=== PATIENT | female | born 1985 | race Caucasian/White ===

== ENCOUNTER 2020-05-09 12:09 | Emergency (ER) | payer BC, OTHER ==
--- NOTE | 2020-05-09 12:21 | EDM.PDOC ---
ED HPI GENERAL MEDICAL PROBLEM - General Chief Complaint: Back Pain or Injury Stated Complaint: POSSIBLE HERNIATED DISC Time Seen by Provider: 05/09/20 12:12 Source of Information: Reports: Patient History Limitations: Reports: No Limitations - History of Present Illness INITIAL COMMENTS - FREE TEXT/NARRATIVE: HISTORY AND PHYSICAL: History of present illness: Patient is a 34-year-old female who presents to the emergency room with complaints of lumbar back pain. She states around she had moved into a new apartment and had done a lot of heavy lifting. Since that time she has had lumbar back pain that radiates to the right side wrapping into her hip. She has seen a chiropractor who adjusted her, she had somewhat relief but pain continues. She has been taking naproxen and Flexeril with some relief, although pain is not resolved. Today when she went to the chiropractor he states they are concerned she has a herniated disc. She tried to get into her primary care provider who wanted her to come to the emergency room for imaging. Patient denies any fever, chills, headache, change in vision, syncope or near syncope. Denies any chest pain, shortness of breath or cough. Denies any abdominal pain, nausea, vomiting, diarrhea, constipation or dysuria. Has not noted any blood in urine or stool. Patient has been eating and drinking appropriately. Review of systems: As per history of present illness and below otherwise all systems reviewed and negative. Past medical history: As per history of present illness and as reviewed below otherwise noncont ributory. Surgical history: As per history of present illness and as reviewed below otherwise noncontributory. Social history: See social history for further information Family history: As per history of present illness and as reviewed below otherwise noncontributory. Physical exam: General: Well developed and well nourished. Alert and orientated x 3. Nontoxic in appearance and in no acute distress. Vital signs are stable and have been reviewed by me. Nursing notes were reviewed. HEENT: Atraumatic, normocephalic, pupils equal and reactive bilaterally, negative for conjunctival pallor or scleral icterus, mucous membranes moist, TMs normal bilaterally, throat clear, neck supple, nontender, trachea midline. No drooling or trismus noted. No meningeal signs. No hot potato voice noted. Lungs: Clear to auscultation, breath sounds equal bilaterally, chest nontender. Normal work of breathing, no accessory muscles used. Heart: S1S2, regular rate and rhythm without overt murmur Abdomen: Soft, nondistended, nontender. Negative for masses or hepatosplenomegaly. Negative for costovertebral tenderness. Pelvis: Stable nontender. C-spine/Back: No pinpoint vertebral tenderness upon palpation. No crepitus, step-offs or obvious deformities. Patient is ambulatory into the emergency room without difficulty or deficit. Able to rock back on heels and walk on toes. Denies any urinary or fecal incontinence. Increased pain to the right lumbar region that wraps to the hip when she bends at the waist. Also has increased pain with twisting side to side. Denies any numbness, tingling or saddle paresthesia. No concerns of serious infection, fracture or cord compression, or cauda equina syndrome. Deep tendon reflexes brisk bilaterally. Skin: Intact, warm, dry. No lesions or rashes noted. Hematologic: No petechiae or purpra. Mucosa appropriate color and normal nail bed color and refill. Extremities: Atraumatic, moves all extremities per self without difficulty or deficits, negative for cords or calf pain. Neurovascular unremarkable. Neuro: Awake, alert, oriented. Cranial nerves II through XII unremarkable. Cerebellum unremarkable. Motor and sensory unremarkable throughout. Exam nonfo hector. Psychiatric: Mood and affect are appropriate. Normal thought process. Answering questions appropriately. Notes: Mild early degenerative changes of the lumbar spine without acute osseous abnormalities. We will give her some pain medication for nighttime use so she states that is when she is most uncomfortable. She will follow-up with her primary care provider. As she has had this pain for approximately 2 weeks I have ordered an outpatient MRI, she does not meet requirements for an emergent MRI as she has no neurological deficits nor urinary/fecal incontinence. I have talked with the patient about today's findings, in addition to providing specific details for plan of care. Reassessment at the time of disposition demonstrates that the patient is in no acute distress. The patient is stable for discharge, counseling was provided and we discussed in great detail signs and symptoms that would prompt them to return to the Emergency Department. Medication, follow up and supportive care measures were reviewed and discussed. Voices understanding and is agreeable to plan of care. Denies any further questions or concerns at this time. Diagnostics: Lumbar x-ray Therapeutics: Toradol, prednisone Prescription: Sibley, prednisone Impression: Lumbar back pain with sciatica of right Plan: 1. You can call to set up an appointment for outpatient MRI if back pain continues. 2. When resting please lay on a flat firm surface. Limit your immobility to prevent muscle stiffness. Get up to ambulate/move around/gentle stretching multiple times throughout the day. May alternate heat and ice to the painful areas 3. Tylenol as needed for back pain. Otherwise take the prescribed Flexeril and diclofenac as directed. Diclofenac is an anti-inflammatory so do not take any additional NSAIDs with this medication, such as ibuprofen or Aleve. Flexeril as a muscle relaxant, this medication may cause drowsiness a do not take it will driving her needing to be functioning outside of the house. 4. We encourage you to follow up with your primary care provider and/or recommended specialist in the next few days for re-evaluation and further care/management. If your symptoms should worsen, new symptoms develop or any of the signs and symptoms we discussed should arise please return to the emergency room or call 911 (if needed). Definitive disposition and diagnosis as appropriate pending reevaluation and review of above. - Related Data Allergies Allergy/AdvReac Type Severity Reaction Status Date / Time latex Allergy Hives Verified 09/30/15 21:14 Sulfa (Sulfonamide Allergy Hives Verified 09/30/15 21:14 Antibiotics) Fresh Pineapple Allergy Swelling Uncoded 09/30/15 21:14 tape adhesives Allergy Itching Uncoded 09/30/15 21:14 Home Meds: Home Meds Acetaminophen/HYDROcodone [Sibley 325-5 MG] 1 dose PO Q6H #20 tablet 05/09/20 [Rx] Naproxen 500 mg PO ASDIRECTED PRN 05/09/20 [History] predniSONE [Prednisone] 40 mg PO DAILY 4 Days #8 tablet 05/09/20 [Rx] Past Medical History HEENT History: Reports: None Respiratory History: Reports: None Psychiatric History: Reports: None - Infectious Disease History Infectious Disease History: Reports: Chicken Pox - Past Surgical History GI Surgical History: Reports: Hernia, Abdominal Female Surgical History: Reports: Section Social & Family History - Family History Family Medical History: No Pertinent Family History ED ROS GENERAL - Review of Systems Review Of Systems: Comprehensive ROS is negative, except as noted in HPI. ED EXAM,LOWER BACK PAIN/INJURY - Physical Exam Exam: See Below (See dictation) Course - Vital Signs Last Recorded V/S: Last Vital Signs Temp 97.3 F 05/09/20 12:10 Pulse 75 05/09/20 12:10 Resp 16 05/09/20 12:10 BP 146/92 H 05/09/20 12:10 Pulse Ox 97 05/09/20 12:10 - Orders/Labs/Meds Meds: Medications Discontinued Medications Generic Name Dose Route Start Last Admin Trade Name Giovanni PRN Reason Stop Dose Admin Ketorolac Tromethamine 60 mg 05/09/20 12:31 05/09/20 12:56 Toradol IM 05/09/20 12:32 60 mg ONETIME ONE Administration Prednisone 40 mg 05/09/20 12:31 05/09/20 12:56 Prednisone PO 05/09/20 12:32 40 mg ONETIME ONE Administration Departure - Departure Time of Disposition: 13:50 Disposition: Home, Self-Care 01 Clinical Impression: Lumbar back pain - Discharge Information Prescriptions: Acetaminophen/HYDROcodone [Sibley 325-5 MG] 1 dose PO Q6H #20 tablet predniSONE [Prednisone] 40 mg PO DAILY 4 Days #8 tablet Referrals: Sindy Holland [employer] [Primary Care Provider] - Forms: ED Department Discharge Additional Instructions: The following information is given to patients seen in the emergency department who are being discharged to home. This information is to outline your options for follow-up care. We provide all patients seen in our emergency department with a follow-up referral. The need for follow-up, as well as the timing and circumstances, are variable depending upon the specifics of your emergency department visit. If you don't have a primary care physician on staff, we will provide you with a referral. We always advise you to contact your personal physician following an emergency department visit to inform them of the circumstance of the visit and for follow-up with them and/or the need for any referrals to a consulting specialist. The emergency department will also refer you to a specialist when appropriate. This referral assures that you have the opportunity for follow-up care with a specialist. All of these measure are taken in an effort to provide you with opti mal care, which includes your follow-up. Under all circumstances we always encourage you to contact your private physician who remains a resource for coordinating your care. When calling for follow-up care, please make the office aware that this follow-up is from your recent emergency room visit. If for any reason you are refused follow-up, please contact the [facility] at and asked to speak to the emergency department charge nurse. [facility] [address] [place] [address] [facility] [address] [place] [address] Thank you for choosing the [facility] emergency department in [place] for your medical needs today. It was a pleasure caring for you. Today you were seen in the emergency department for back pain. 1. You can call to set up an appointment for outpatient MRI if back pain continues. 2. When resting please lay on a flat firm surface. Limit your immobility to prevent muscle stiffness. Get up to ambulate/move around/gentle stretching multiple times throughout the day. May alternate heat and ice to the painful areas 3. Tylenol as needed for back pain. Otherwise take the prescribed Flexeril and diclofenac as directed. Diclofenac is an anti-inflammatory so do not take any additional NSAIDs with this medication, such as ibuprofen or Aleve. Flexeril as a muscle relaxant, this medication may cause drowsiness a do not take it will driving her needing to be functioning outside of the house. 4. We encourage you to follow up with your primary care provider and/or recommended specialist in the next few days for re-evaluation and further care/management. If your symptoms should worsen, new symptoms develop or any of the signs and symptoms we discussed should arise please return to the emergency room or call 911 (if needed). Sepsis Event Note (ED) - Focused Exam Vital Signs: Vital Signs Temp Pulse Resp BP Pulse Ox 05/09/20 12:10 97.3 F 75 16 146/92 H 97
[2020-05-09] MEDS ORDERED: predniSONE 20 MG Tab PO ONE (12:31)
[2020-05-09] MEDS ORDERED: Ketorolac 60 MG/2 ML SDV IM ONE (12:31)
--- NOTE | 2020-05-09 13:36 | CR ---
INDICATION: Pain in lower back TECHNIQUE: AP, Lateral, and cone-down L5-S1 views of the lumbar spine were obtained COMPARISON: None available. FINDINGS: Vertebral bodies: There is minimal endplate Schmorl`s defect of the anterior superior aspect of the L2 vertebral body, otherwise the vertebral body heights are maintained in satisfactory alignment. Joints: There is minimal degenerative disc disease with mild disc height loss and marginal osteophyte formation. Soft tissues: Unremarkable. IMPRESSION: Mild early degenerative changes of the lumbar spine without acute osseous abnormality. Dictated by Ryan Ryan MD @ May 09 2020 1:33PM Signed by Dr. Ryan Ryan @ May 09 2020 1:34PM
[2020-05-09 15:55] VITALS: BP 135/88; PULSE 77
== END 2020-05-09 14:02 | disposition home or self-care (01) ==
LOC: MW.ED 12:09
DX: M54.41 Lumbago with sciatica, right side (principal); Z91.040 Latex allergy status; Z88.2 Allergy status to sulfonamides; Z91.018 Allergy to other foods; Z91.048 Other nonmedicinal substance allergy status
CPT/HCPCS: 72100; 96372; 99283; A9270; J1885

== ENCOUNTER 2020-10-31 01:54 | Emergency (ER) | payer OTHER ==
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
--- NOTE | 2020-10-31 03:44 | CR ---
HISTORY: Pain after falling down a step. COMPARISON: None available. FINDINGS: AP, lateral, and oblique views of the left wrist are obtained for a total of three views. There is no sign of fracture or dislocation. The bones of the carpus are in anatomic alignment with the distal radius. No degenerative disease is seen. The soft tissues are normal in appearance with no sign of foreign body. IMPRESSION: Normal left wrist. Dictated by Scott Moffett MD @ 10/31/2020 3:41:[address] Scott Moffett @ Oct 31 2020 3:41AM
--- NOTE | 2020-10-31 04:13 | CT ---
INDICATION: Status post fall. ETOH. COMPARISON: None available. TECHNIQUE: CT examination of the head was performed with 5 mm thick axial and 2 mm thick coronal and sagittal sections without intravenous contrast. Images were obtained from the vertex of the skull through the skull base, and I examined the images with the brain and bone windows. Please note that all CT scans at this facility use dose modulation, iterative reconstruction, and/or weight-based dosing when appropriate to reduce radiation dose to as low as reasonably achievable. FINDINGS: : There is a laceration and contusion of the high left posterior parietal scalp with no sign of fracture of the underlying calvarium and no sign of injury to the underlying brain. The brain is normal in appearance for the patient`s age on today`s study, with no sign of mass lesion, mass effect, hemorrhage, or edema. The ventricles and sulci are normal in appearance for the patient`s age. The visualized portions of the orbits are normal in appearance. The visualized portions of the paranasal sinuses and mastoids are clear. The osseous structures are normal in their appearance with no sign of abnormality in the skull base or calvarium. IMPRESSION: Laceration and contusion of the high left posterior parietal scalp with no sign of fracture of the underlying calvarium and no sign of injury to the underlying brain. Normal CT appearance of the brain with no sign of closed head injury. Please note that all CT scans at this facility use dose modulation, iterative reconstruction, and/or weight-based dosing when appropriate to reduce radiation dose to as low as reasonably achievable. Dictated by Scott Moffett MD @ 10/31/2020 4:11:[address] Scott Moffett @ Oct 31 2020 4:11AM
[2020-10-31 04:58] VITALS: BP 118/60; PULSE 92
== END 2020-10-31 04:58 | disposition home or self-care (01) ==
LOC: MW.ED 01:54
DX: S01.01XA Laceration without foreign body of scalp, initial encounter (principal); Z91.040 Latex allergy status; Z88.2 Allergy status to sulfonamides; Z91.048 Other nonmedicinal substance allergy status; Z79.899 Other long term (current) drug therapy; Z91.018 Allergy to other foods; W10.9XXA Fall (on) (from) unspecified stairs and steps, initial encounter
CPT/HCPCS: 70450; 70450-26; 73110-26-LT; 73110-LT; 99284-25